=== PATIENT | female | born 1970 | race Caucasian/White ===

== ENCOUNTER 2018-02-21 22:58 | Emergency (ER) | payer OTHER ==
[~2018-02-21] VITALS: Ht 165.1 cm; Wt 56.7 kg
--- NOTE | 2018-02-21 23:25 | NUR ---
ADMITTED TO ER RM 3 AMBULATORY FROM HOME C/O PAIN ON HER NECK RADIATING TO HER BACK & L SHOULDER. DR DICKSON CAME IN & SEEN PT.
[2018-02-21] MEDS ORDERED: LORAZEPAM 2 MG/1 ML VIAL IV ONE (23:30)
[2018-02-21] MEDS ORDERED: HYDROMORPHONE 1 MG/1 ML DISP.SYRIN IV ONE (23:30)
[2018-02-21] MEDS ORDERED: ONDANSETRON IV *ER 4 MG/2 ML VIAL IV ONE (23:30)
[2018-02-22] MEDS ORDERED: ONDANSETRON 4 MG/2 ML VIAL ONE
[2018-02-22] MEDS ORDERED: HYDROMORPHONE 2 MG/1 ML DISP.SYRIN ONE
[2018-02-22] MEDS ORDERED: LORAZEPAM 2 MG/1 ML VIAL ONE (00:01)
--- NOTE | 2018-02-22 00:04 | NUR ---
MEDICATED W/ DILAUDID 1MG IVP FOR PAIN ORDERED.
[2018-02-22 01:01] VITALS: BP 100/65
== END 2018-02-22 00:50 | disposition home or self-care (01) ==
LOC: ER 22:58
DX: M54.12 Radiculopathy, cervical region (principal); G89.29 Other chronic pain; M54.2 Cervicalgia; M54.9 Dorsalgia, unspecified
CPT/HCPCS: A4663; J1170; J2060; J2405